=== PATIENT | female | born 1985 | race Caucasian/White ===

== ENCOUNTER → 2016-09-09 12:50 | Observation (INO) ==
[2016-09-09 11:00] LABS: Basophils % 0.2 %; Eosinophils # 0.1 K/mcL (0.0-0.6); Eosinophils % 0.7 %; Hematocrit 36.7 % (35.3-44.9); Hemoglobin 12.2 g/dL (11.5-15.4); Immature Granulocytes % 0.3 % (0-4); Lymphocytes # 1.8 K/mcL (0.6-4.6); Lymphocytes % 15.5 %; Mean Corpuscular HGB Conc 33.2 g/dL (31.6-35.5); Mean Corpuscular Hemoglobin 28.2 pg (28.0-33.3); Mean Corpuscular Volume 84.8 fL (83.0-100.0); Mean Platelet Volume 10.3 fL (9.4-12.4); Monocytes # 0.6 K/mcL (0.0-1.3); Monocytes % 5.2 %; Neutrophils # 9.2 K/mcL (1.6-8.9); Platelet Count 271 K/mcL (140-400); Red Blood Count 4.33 M/mcL (3.82-4.97); Red Cell Distribution Width 13.1 % (11.5-14.5); Segmented Neutrophils % 78.1 %
[2016-09-09 11:02] LABS: Bilirubin,Urine Negative (Negative); Blood,Urine Negative (Negative); Clarity,Urine Cloudy (Clear); Color,Urine Yellow (Yellow); Glucose,Urine (UA) Normal (Normal); Ketones,Urine Negative (Negative); Leukocyte Esterase,Urine Small (Negative); Nitrite,Urine Negative (Negative); PH,Urine 6.5 pH Units (5.0-8.0); Protein,Urine Negative (Neg-Trace); Specific Gravity,Urine 1.023 (1.010-1.025); Urobilinogen,Urine Normal (Normal)
[2016-09-09 11:04] LABS: Bacteria,Urine Moderate per hpf (None-Few); Hyaline Casts,Urine None Seen per lpf (None-Few); Squamous Epithelial Cell,Urine Many per lpf (None-Few)
[2016-09-09 11:13] LABS: Alanine Aminotransferase 11 Units/L (0-55); Aspartate Amino Transferase 12 Units/L (5-34); BUN/Creatinine Ratio 17 (6-26); Blood Urea Nitrogen 10 mg/dL (7-20); Lactate Dehydrogenase 157 Units/L (159-327); Uric Acid 4.6 mg/dL (2.6-6.0); eGFR For African Americans > 60 (> 60); eGFR For Non-African Americans > 60 (> 60)
--- NOTE | 2016-09-09 11:16 | OB/GYN History & Physical ---
Date of Encounter: 09/09/16 Time of Encounter: 11:12 Assessment and Plan (1) 34 weeks gestation of Current visit: Yes Status: Acute (2) Cramping affecting , antepartum Current visit: Yes Status: Acute - Normal physiologic cramping during . - Follow-up outpatient abnormal visit. History of Present Illness HPI: Ms. Roberts is a 31 year old female who is a 34 weeks and 1 day and is . She does have a history of gestational diabetes. She states this is possibly insulin-dependent diabetes. She was diagnosed during her previous and was continued on insulin however she got again less than a month after she had delivered. She is presenting with cramping in the right side of her abdomen since 3:30 this morning. She states they were happening every 3 minutes however they have slowed at this time. Her only other complaint at this time is she feels like her blood sugar is dropping. She did take her insulin and eat this morning. Her blood sugar was checked and found to be 77. Past Med Surg Social Fam HX - Past Medical History Medical history: diabetes Psychiatric history: no psych history - Past Surgical History Surgical History: - Social History Smoking Status: Never smoker Smokeless Tobacco Status: No Alcohol use: none Drug use: none, other - Family History Father Living Status: Still Living Hx Family Cardiac Disorders: Yes (heart attack x 2) Hx Family Respiratory Disorders: No Hx Family Cancer: No Hx Family GI Disorders: No Hx Family Genitourinary Disorders: No Hx Family Endocrine Disorder: No Hx Family Musculoskeletal Disorders: No Hx Family Neuromuscular Disorders: No Hx Family Neurologic Disorders: No Hx Family HEENT Disorders: No Hx Family Autoimmune Disorders: No Hx Family Reproductive Disorders: No Hx Family Psychosocial Disorders: No Hx Family Medical Disorders: Yes (hypertension) Obstetrical History - Pregnancies : 5 Para: 2 Medications and Allergies Insulin LISPRO [HumaLOG] 36 unit SQ 1200 09/09/16 [History] Insulin LISPRO [HumaLOG] 46 unit SQ QAM 09/09/16 [History] Insulin LISPRO [Humalog] 42 unit SQ 1700 09/09/16 [History] Insulin NPH [HumuLIN NPH] 46 unit SQ QAM 09/09/16 [History] Insulin NPH, HUMAN [HumuLIN N] 80 unit SQ 1200 09/09/16 [History] Pnv95/Ferrous Fumarate/FA [ Caplet] 1 each PO DAILY 09/09/16 [History] Allergies No Known Allergies Allergy (Unverified 03/30/15 11:52) Review of System OB All systems PM: reviewed and no additional remarkable complaints except as stated - Constitutional Constitutional ROS IM: no chills, no fever(s) - Nose, mouth, and throat Nose, mouth and throat: no headache(s), no vertigo - Cardiovascular Cardiovascular: pedal edema (Mild after standing all day.), no chest pain, no dyspnea - Respiratory Respiratory: no cough, no dyspnea - Gastrointestinal Gastrointestinal: constipation (Patient reports this however she states she had a bowel movement this morning.), heartburn (Occasional), nausea (Occasional), no dysphagia, no hematemesis, no loose stools, no vomiting - Genitourinary Genitourinary: amenorrhea, no difficulty urinating, no difficulty voiding, no hematuria, no pelvic pain, no urinary frequency, no urinary urgency, no vaginal discharge - Muscloskeletal Musculoskeletal: back pain - Integumentary Integumentary: no rash - Neurological Nerological: no dizziness, no headache(s), no loss of vision, no syncope, no vertigo Exam - Constitutional Constitutional: well developed, well nourished, no acute distress, obese - HEENT HEENT: Normocephaly, Mucus Membranes Moist - Neck Neck exam: full ROM, trachea midline - Lungs Respiratory exam: CTAB - Cardiovascular Cardiovascular exam: RRR - Abdomen Abdomen: Present: bowel sounds normal, gravid, non tender - Extremities Extremities exam: normal capillary refill, normal inspection, pedal edema (Very mild) Deep Tendon Reflex Grade: 2+ Normal - Uterus Uterus exam: Present: normal size, normal contour Results Result Diagrams: 09/09/16 10:44 09/09/16 10:44 Abnormal lab results WBC 11.8 K/mcL (4.3-11.1) H 09/09/16 10:44 Neutrophils # 9.2 K/mcL (1.6-8.9) H 09/09/16 10:44 All other labs normal. Patient's UA was a dirty catch. We will treat if cultures are positive. She has no urinary symptoms at this time. - VTE Reasons for not Prescribing Prophylaxis: Treatment not Indicated - Low risk for VTE
--- NOTE | 2016-09-09 12:31 | Discharge Summary ---
Date of Encounter: 09/09/16 Time of Encounter: 12:31 - Discharge Diagnosis (1) 34 weeks gestation of Priority: Primary Status: Acute (2) Cramping affecting , antepartum Priority: Secondary Status: Acute - Discharge Medications Home Medications: Insulin LISPRO [HumaLOG] 36 unit SQ 1200 09/09/16 [History] Insulin LISPRO [HumaLOG] 46 unit SQ QAM 09/09/16 [History] Insulin LISPRO [Humalog] 42 unit SQ 1700 09/09/16 [History] Insulin NPH [HumuLIN NPH] 46 unit SQ QAM 09/09/16 [History] Insulin NPH, HUMAN [HumuLIN N] 80 unit SQ 1200 09/09/16 [History] Pnv95/Ferrous Fumarate/FA [ Caplet] 1 each PO DAILY 09/09/16 [History] Allergies/Adverse Reactions: Allergies No Known Allergies Allergy (Unverified 03/30/15 11:52) Data Procedures and tests throughout hospitalization: Laboratory Tests 09/09/16 09/09/16 09/09/16 10:00 10:41 10:44 WBC 11.8 H RBC 4.33 Hgb 12.2 Hct 36.7 MCV 84.8 MCH 28.2 MCHC 33.2 RDW 13.1 Plt Count 271 MPV 10.3 Immature Gran % 0.3 Seg Neutrophils % 78.1 Lymphocytes % 15.5 Monocytes % 5.2 Eosinophils % 0.7 Basophils % 0.2 Neutrophils # 9.2 H Lymphocytes # 1.8 Monocytes # 0.6 Eosinophils # 0.1 Basophils # 0.0 BUN Creatinine Est GFR ( Amer) Est GFR (Non-Af Amer) BUN/Creatinine Ratio POC Glucose 77 Uric Acid AST ALT Lactate Dehydrogenase Urine Color Yellow Urine Clarity Cloudy A Urine pH 6.5 Ur Specific [place] 1.023 Urine Protein Negative Urine Glucose (UA) Normal Urine Ketones Negative Urine Blood Negative Urine Nitrite Negative Urine Bilirubin Negative Urine Urobilinogen Normal Ur Leukocyte Esterase Small H Urine Microscopic RBC 3-5 H Urine Microscopic WBC 5-15 H Ur Squamous Epith Cells Many H Urine Bacteria Moderate H Hyaline Casts None Seen Ur Culture Indicated? YES A 09/09/16 10:44 WBC RBC Hgb Hct MCV MCH MCHC RDW Plt Count MPV Immature Gran % Seg Neutrophils % Lymphocytes % Monocytes % Eosinophils % Basophils % Neutrophils # Lymphocytes # Monocytes # Eosinophils # Basophils # BUN 10 Creatinine 0.59 Est GFR ( Amer) > 60 Est GFR (Non-Af Amer) > 60 BUN/Creatinine Ratio 17 POC Glucose Uric Acid 4.6 AST 12 ALT 11 Lactate Dehydrogenase 157 L Urine Color Urine Clarity Urine pH Ur Specific [place] Urine Protein Urine Glucose (UA) Urine Ketones Urine Blood Urine Nitrite Urine Bilirubin Urine Urobilinogen Ur Leukocyte Esterase Urine Microscopic RBC Urine Microscopic WBC Ur Squamous Epith Cells Urine Bacteria Hyaline Casts Ur Culture Indicated? Patient urine a dirty catch. We will prescribe antibiotics if cultures positive. She has no urinary symptoms at this time. Urine protein was negative. Labs on day of discharge: Labs from last 24 hours 09/09/16 09/09/16 09/09/16 10:44 10:44 10:41 WBC 11.8 H RBC 4.33 Hgb 12.2 Hct 36.7 MCV 84.8 MCH 28.2 MCHC 33.2 RDW 13.1 Plt Count 271 MPV 10.3 Immature Gran % 0.3 Seg Neutrophils % 78.1 Lymphocytes % 15.5 Monocytes % 5.2 Eosinophils % 0.7 Basophils % 0.2 Neutrophils # 9.2 H Lymphocytes # 1.8 Monocytes # 0.6 Eosinophils # 0.1 Basophils # 0.0 BUN 10 Creatinine 0.59 Est GFR ( Amer) > 60 Est GFR (Non-Af Amer) > 60 BUN/Creatinine Ratio 17 POC Glucose 77 Uric Acid 4.6 AST 12 ALT 11 Lactate Dehydrogenase 157 L Urine Color Urine Clarity Urine pH Ur Specific [place] Urine Protein Urine Glucose (UA) Urine Ketones Urine Blood Urine Nitrite Urine Bilirubin Urine Urobilinogen Ur Leukocyte Esterase Urine Microscopic RBC Urine Microscopic WBC Ur Squamous Epith Cells Urine Bacteria Hyaline Casts Ur Culture Indicated? 09/09/16 10:00 WBC RBC Hgb Hct MCV MCH MCHC RDW Plt Count MPV Immature Gran % Seg Neutrophils % Lymphocytes % Monocytes % Eosinophils % Basophils % Neutrophils # Lymphocytes # Monocytes # Eosinophils # Basophils # BUN Creatinine Est GFR ( Amer) Est GFR (Non-Af Amer) BUN/Creatinine Ratio POC Glucose Uric Acid AST ALT Lactate Dehydrogenase Urine Color Yellow Urine Clarity Cloudy A Urine pH 6.5 Ur Specific [place] 1.023 Urine Protein Negative Urine Glucose (UA) Normal Urine Ketones Negative Urine Blood Negative Urine Nitrite Negative Urine Bilirubin Negative Urine Urobilinogen Normal Ur Leukocyte Esterase Small H Urine Microscopic RBC 3-5 H Urine Microscopic WBC 5-15 H Ur Squamous Epith Cells Many H Urine Bacteria Moderate H Hyaline Casts None Seen Ur Culture Indicated? YES A Date of admission: 09/09/16 09:47 Primary care physician: PCP NO - Patient Status Disposition: Home, Self-Care Condition: Good Overall status at discharge: patient is back to baseline - Discharge Instructions Follow Up With: NO,PCP [Primary Care Provider] - Patience Salas, [Partnered Physician] - Additional Instructions: 1. Continue to drink plenty of fluids. 2. Continue your insulin regimen as discussed with maternal- medicine. 3. You may use [id number] Tylenol for general aches and pains. 4. If you have any questions or concerns or your symptoms return or worsen please contact the office. If you feels like you need to immediately be seen please come to the hospital. - Diet and Activity Activity: increase activity as tolerated Diet: advance to your usual diet, diabetic diet Hospital Course [employer] Time Attestation: Total time spent providing and/or coordinating discharge services: Time Spent: Less than 30 minutes - VTE Reasons for not Prescribing Prophylaxis: Treatment not Indicated - Low risk for VTE
[2016-09-09 12:34] LABS: Protein/Creatinine Ratio,Urine 0.17 mg/mg (0-0.20)
== END | disposition home or self-care (01) ==
LOC: 1NENULAB
PROVIDERS: ADMIT Obstetrics & Gynecology; ATTEND Obstetrics & Gynecology

== ENCOUNTER → 2016-09-11 20:49 | Observation (INO) ==
[2016-09-11 17:41] VITALS: BP 143/100
[2016-09-11 18:04] LABS: Basophils % 0.3 %; Eosinophils # 0.1 K/mcL (0.0-0.6); Eosinophils % 0.9 %; Hematocrit 38.5 % (35.3-44.9); Hemoglobin 12.7 g/dL (11.5-15.4); Immature Granulocytes % 0.3 % (0-4); Lymphocytes # 2.2 K/mcL (0.6-4.6); Mean Corpuscular Volume 84.8 fL (83.0-100.0); Mean Platelet Volume 10.7 fL (9.4-12.4); Monocytes # 0.7 K/mcL (0.0-1.3); Monocytes % 6.4 %; Neutrophils # 7.4 K/mcL (1.6-8.9); Platelet Count 290 K/mcL (140-400); Red Blood Count 4.54 M/mcL (3.82-4.97); Segmented Neutrophils % 71.1 %
[2016-09-11 18:13] LABS: Creatinine,Urine 27 mg/dL; Protein/Creatinine Ratio,Urine 0.26 mg/mg (0-0.20)
[2016-09-11 18:22] LABS: Alanine Aminotransferase 11 Units/L (0-55); Aspartate Amino Transferase 10 Units/L (5-34); BUN/Creatinine Ratio 16 (6-26); Blood Urea Nitrogen 10 mg/dL (7-20); Lactate Dehydrogenase 128 Units/L (159-327); Uric Acid 3.7 mg/dL (2.6-6.0); eGFR For African Americans > 60 (> 60); eGFR For Non-African Americans > 60 (> 60)
[2016-09-11 18:41] LABS: Glucose 197 mg/dL (70-99)
--- NOTE | 2016-09-11 20:30 | OB/GYN Progress Note ---
Date of Encounter: 09/11/16 Time of Encounter: 20:27 - Assessment and Plan (1) Gestational hypertension without significant proteinuria in third trimester Current Visit: Yes Status: Acute begin labetolol 100 mg po tid. Home BP checks with proper sized cuff. Followup Monday with me. (2) Modified White class B pregestational diabetes mellitus Current Visit: Yes Status: Acute Stressed to patient importance of doing her glucose measurements, taking her insulin, and eating regularly. She voices understanding and states she will do better at it. I explained just like the hyperglycemia makes mom tired, it will also make the baby tired and move less. (3) 34 weeks gestation of Current Visit: No Status: Acute (4) Decreased movement Current Visit: Yes Status: Acute Reactive NST with baseline now 150, category 1. Initially tachycardia in 160's with moderate variablity and accels which resolved with insulin and IV hydration. Subjective - Subjective Principal diagnosis: increased blood pressure with decreased movement Interval history: Patient called and then presented with increased blood pressure at home and decreased movement. She also states she has had a headache. It is a normal type headache for her. She has not eaten or taken any insulin all day. She has also not checked her blood sugar today. Since arrival she is feeling better and has felt the baby move more frequently. Antepartum ROS: no loss of fluid, no vaginal bleeding, no contractions Objective - Vital Signs Vital Signs: Vital Signs Pulse Resp BP 09/11/16 17:28 100 16 143/100 Intake and Output 09/11/16 09/11/16 09/11/16 07:59 15:59 23:59 Other: Weight 114 kg Patient Weight 09/11/16 23:59 Weight 114 kg - Exam FHR: category 1 Auscultation: bilateral: normal Abdomen: Present: normal appearance, soft, gravid - Labs Labs: Abnormal lab results Glucose 197 mg/dL (70-99) H 09/11/16 17:56 Lactate Dehydrogenase 128 Units/L (159-327) L 09/11/16 17:56 Protein/Creatinin Ratio 0.26 mg/mg (0-0.20) H 09/11/16 17:56 - Allied health notes Allied health notes reviewed: nursing
--- NOTE | 2016-09-11 20:35 | Discharge Summary ---
Outpatient Proc Discharge Plan - Plan Prescriptions: Labetalol [Trandate] 100 mg PO TID #90 tablet Home Medications: Insulin LISPRO [HumaLOG] 36 unit SQ 1200 09/09/16 [History] Insulin LISPRO [HumaLOG] 46 unit SQ QAM 09/09/16 [History] Insulin LISPRO [Humalog] 42 unit SQ 1700 09/09/16 [History] Insulin NPH [HumuLIN NPH] 46 unit SQ QAM 09/09/16 [History] Insulin NPH, HUMAN [HumuLIN N] 80 unit SQ 1200 09/09/16 [History] Pnv95/Ferrous Fumarate/FA [ Caplet] 1 each PO DAILY 09/09/16 [History] Labetalol [Trandate] 100 mg PO TID #90 tablet 09/11/16 [Rx]
[~2016-09-11 20:49] MED LIST: 0.9 % Sodium Chloride 1,000 ML IVC ONE; Insulin LISPRO 300 UNITS/3 ML VIAL SQ STA
== END | disposition home or self-care (01) ==
LOC: 1NENULAB
PROVIDERS: ADMIT Obstetrics & Gynecology; ATTEND Obstetrics & Gynecology

== ENCOUNTER → 2016-09-13 18:35 | Observation (INO) ==
[2016-09-13 17:52] LABS: Bilirubin,Urine Negative (Negative); Blood,Urine Negative (Negative); Clarity,Urine Cloudy (Clear); Color,Urine Yellow (Yellow); Glucose,Urine (UA) Normal (Normal); Ketones,Urine 40 mg/dL (Negative); Leukocyte Esterase,Urine Small (Negative); Nitrite,Urine Negative (Negative); PH,Urine 6.5 pH Units (5.0-8.0); Protein,Urine Negative (Neg-Trace); Specific Gravity,Urine 1.016 (1.010-1.025); Urobilinogen,Urine Normal (Normal)
[2016-09-13 17:54] LABS: Basophils % 0.2 %; Eosinophils # 0.1 K/mcL (0.0-0.6); Eosinophils % 1.1 %; Hematocrit 36.1 % (35.3-44.9); Hemoglobin 11.8 g/dL (11.5-15.4); Immature Granulocytes % 0.4 % (0-4); Lymphocytes # 2.3 K/mcL (0.6-4.6); Lymphocytes % 20.8 %; Mean Corpuscular HGB Conc 32.7 g/dL (31.6-35.5); Mean Corpuscular Hemoglobin 27.6 pg (28.0-33.3); Mean Corpuscular Volume 84.3 fL (83.0-100.0); Mean Platelet Volume 10.5 fL (9.4-12.4); Monocytes # 0.6 K/mcL (0.0-1.3); Monocytes % 5.1 %; Neutrophils # 8.1 K/mcL (1.6-8.9); Platelet Count 290 K/mcL (140-400); Red Blood Count 4.28 M/mcL (3.82-4.97); Red Cell Distribution Width 12.9 % (11.5-14.5); Segmented Neutrophils % 72.4 %
[2016-09-13 17:55] LABS: Bacteria,Urine Many per hpf (None-Few); Hyaline Casts,Urine None Seen per lpf (None-Few); RBC,Urine 0-3 per hpf (0-3); Squamous Epithelial Cell,Urine Many per lpf (None-Few)
[2016-09-13 18:00] LABS: Protein/Creatinine Ratio,Urine 0.22 mg/mg (0-0.20)
[2016-09-13 18:06] LABS: Alanine Aminotransferase 10 Units/L (0-55); Aspartate Amino Transferase 12 Units/L (5-34); BUN/Creatinine Ratio 21 (6-26); Blood Urea Nitrogen 11 mg/dL (7-20); Lactate Dehydrogenase 128 Units/L (159-327); Uric Acid 3.9 mg/dL (2.6-6.0); eGFR For African Americans > 60 (> 60); eGFR For Non-African Americans > 60 (> 60)
--- NOTE | 2016-09-13 18:24 | Discharge Summary ---
Date of Encounter: 09/13/16 Time of Encounter: 18:23 - Discharge Diagnosis (1) 34 weeks gestation of Priority: Primary Status: Acute Comments: Headache. Treating with [id number] Tylenol. - Discharge Medications Home Medications: Insulin LISPRO [HumaLOG] 36 unit SQ 1200 09/09/16 [History] Insulin LISPRO [HumaLOG] 46 unit SQ QAM 09/09/16 [History] Insulin LISPRO [Humalog] 42 unit SQ 1700 09/09/16 [History] Insulin NPH [HumuLIN NPH] 46 unit SQ QAM 09/09/16 [History] Insulin NPH, HUMAN [HumuLIN N] 80 unit SQ HS 09/09/16 [History] Pnv95/Ferrous Fumarate/FA [ Caplet] 1 each PO DAILY 09/09/16 [History] Labetalol [Trandate] 100 mg PO TID #90 tablet 09/11/16 [Rx] Allergies/Adverse Reactions: Allergies No Known Allergies Allergy (Unverified 03/30/15 11:52) Data Procedures and tests throughout hospitalization: Laboratory Tests 09/13/16 09/13/16 09/13/16 17:15 17:15 17:15 WBC 11.2 H RBC 4.28 Hgb 11.8 Hct 36.1 MCV 84.3 MCH 27.6 L MCHC 32.7 RDW 12.9 Plt Count 290 MPV 10.5 Immature Gran % 0.4 Seg Neutrophils % 72.4 Lymphocytes % 20.8 Monocytes % 5.1 Eosinophils % 1.1 Basophils % 0.2 Neutrophils # 8.1 Lymphocytes # 2.3 Monocytes # 0.6 Eosinophils # 0.1 Basophils # 0.0 BUN Creatinine Est GFR ( Amer) Est GFR (Non-Af Amer) BUN/Creatinine Ratio Uric Acid AST ALT Lactate Dehydrogenase Urine Color Yellow Urine Clarity Cloudy A Urine pH 6.5 Ur Specific [place] 1.016 Urine Protein Negative Urine Glucose (UA) Normal Urine Ketones 40 H Urine Blood Negative Urine Nitrite Negative Urine Bilirubin Negative Urine Urobilinogen Normal Ur Leukocyte Esterase Small H Urine Microscopic RBC 0-3 Urine Microscopic WBC 5-15 H Ur Squamous Epith Cells Many H Urine Bacteria Many H Hyaline Casts None Seen Ur Culture Indicated? YES A Urine Creatinine 51 Protein/Creatinin Ratio 0.22 H Urine Total Protein 11 09/13/16 17:15 WBC RBC Hgb Hct MCV MCH MCHC RDW Plt Count MPV Immature Gran % Seg Neutrophils % Lymphocytes % Monocytes % Eosinophils % Basophils % Neutrophils # Lymphocytes # Monocytes # Eosinophils # Basophils # BUN 11 Creatinine 0.52 L Est GFR ( Amer) > 60 Est GFR (Non-Af Amer) > 60 BUN/Creatinine Ratio 21 Uric Acid 3.9 AST 12 ALT 10 Lactate Dehydrogenase 128 L Urine Color Urine Clarity Urine pH Ur Specific [place] Urine Protein Urine Glucose (UA) Urine Ketones Urine Blood Urine Nitrite Urine Bilirubin Urine Urobilinogen Ur Leukocyte Esterase Urine Microscopic RBC Urine Microscopic WBC Ur Squamous Epith Cells Urine Bacteria Hyaline Casts Ur Culture Indicated? Urine Creatinine Protein/Creatinin Ratio Urine Total Protein Labs on day of discharge: Labs from last 24 hours 09/13/16 09/13/16 09/13/16 17:15 17:15 17:15 WBC 11.2 H RBC 4.28 Hgb 11.8 Hct 36.1 MCV 84.3 MCH 27.6 L MCHC 32.7 RDW 12.9 Plt Count 290 MPV 10.5 Immature Gran % 0.4 Seg Neutrophils % 72.4 Lymphocytes % 20.8 Monocytes % 5.1 Eosinophils % 1.1 Basophils % 0.2 Neutrophils # 8.1 Lymphocytes # 2.3 Monocytes # 0.6 Eosinophils # 0.1 Basophils # 0.0 BUN 11 Creatinine 0.52 L Est GFR ( Amer) > 60 Est GFR (Non-Af Amer) > 60 BUN/Creatinine Ratio 21 Uric Acid 3.9 AST 12 ALT 10 Lactate Dehydrogenase 128 L Urine Color Yellow Urine Clarity Cloudy A Urine pH 6.5 Ur Specific [place] 1.016 Urine Protein Negative Urine Glucose (UA) Normal Urine Ketones 40 H Urine Blood Negative Urine Nitrite Negative Urine Bilirubin Negative Urine Urobilinogen Normal Ur Leukocyte Esterase Small H Urine Microscopic RBC 0-3 Urine Microscopic WBC 5-15 H Ur Squamous Epith Cells Many H Urine Bacteria Many H Hyaline Casts None Seen Ur Culture Indicated? YES A Urine Creatinine Protein/Creatinin Ratio Urine Total Protein 09/13/16 17:15 WBC RBC Hgb Hct MCV MCH MCHC RDW Plt Count MPV Immature Gran % Seg Neutrophils % Lymphocytes % Monocytes % Eosinophils % Basophils % Neutrophils # Lymphocytes # Monocytes # Eosinophils # Basophils # BUN Creatinine Est GFR ( Amer) Est GFR (Non-Af Amer) BUN/Creatinine Ratio Uric Acid AST ALT Lactate Dehydrogenase Urine Color Urine Clarity Urine pH Ur Specific [place] Urine Protein Urine Glucose (UA) Urine Ketones Urine Blood Urine Nitrite Urine Bilirubin Urine Urobilinogen Ur Leukocyte Esterase Urine Microscopic RBC Urine Microscopic WBC Ur Squamous Epith Cells Urine Bacteria Hyaline Casts Ur Culture Indicated? Urine Creatinine 51 Protein/Creatinin Ratio 0.22 H Urine Total Protein 11 patient protein/ creatinine ratio 0.22. patient urinalysis is a dirty catch. Patient's urine protein was negative Liver enzymes were normal. - Impressions ROS: All other systems negative except for stated. Patient denies any syncope. She does report a headache that has been an aching behind her eyes bilaterally since Monday. She states she does have photophobia with this. She does have a history of migraines. She states this is not as bad as her general migraines. She does report nausea with this as well. She denies any vomiting or diarrhea. She denies any abdominal pain. She denies any loss of vision. She denies any recent fevers or illnesses. She reports pedal edema after standing on her feet all day. She denies any shortness of breath or chest pain. Patient is a at 34 weeks and with a complicated with diabetes. patient sent for a [facility] evaluation. She was SEEN HERE ON Monday and placed on labetalol. She states that she has had a headache since Monday. While being evaluated here she states that her headache has eased off. She refuses pain medication while she is here. Patient's blood pressure is within normal limits while she is here. She states she did not take her labetalol afternoon dose. She denies any blurry vision or loss of vision. She states that she does have some photophobia with this headache. She does not have edema to any of her extremities at this time. Her lab work is grossly normal. Her urinalysis was a dirty catch. She has no urinary symptoms at this time. We will discharge patient with follow-up for her normal office visit which is biweekly with Dr. Salas. Date of admission: 09/13/16 17:19 - Patient Status Disposition: Home, Self-Care Condition: Good Overall status at discharge: patient is back to baseline - Discharge Instructions Follow Up With: Patience Salas DO [Partnered Physician] - Additional Instructions: LABOR AND DELIVERY DISCHARGE INSTRUCTIONS Signs and Symptoms to be Reported to your Doctor Immediately: * Sudden gush, continuous or intermittent lead of fluid from vagina (note the time of gush and color of fluid) * Onset of bright red vaginal bleeding with or without pain (if you had a vaginal exam during this visit you may notice some dark red spotting. This is normal.) * Lower abdominal cramping or backache that is premenstrual-like feeling. * More than 6 contractions in one hour. * Burning during urination, having to urinate more frequently or pain in your mid-back. * A change in the baby's activity. This could be an increase or decrease in activity. * Severe headache which does not go away with tylenol. * Sudden swelling in the face, hands, arms and/or legs. * Upper abdominal pain - sometimes associated with heartburn or nausea and is not relieved by Maalox, Mylanta or Tums. * Dizziness or blurred vision or visual disturbances (seeing stars/lights). * Kick Counts One hour after a meal, lay down on one side in a quiet place. Count the number of kavon the baby moves during an hour. If less than 6 movements, notify your physician. Diet: *Force fluids - 8-10 tall glasses of fluid per day. May include popsicles and jello. *Limit caffeine - this includes chocolate, coffee, tea, any soft drink containing such as all leila, Inderjit Yellow and Mountain Dew - Diet and Activity Activity: resume usual activities as tolerated Diet: advance to your usual diet Hospital Course [employer] Time Attestation: Total time spent providing and/or coordinating discharge services: Time Spent: Less than 30 minutes Exam - Constitutional General appearance IM: A&O X 3, no acute distress - Respiratory Respiratory exam: Present: CTAB - Cardiovascular Cardiovascular exam IM: Present: RRR - GI/Abdominal GI/Abdominal exam IM: normal bowel sounds - Extremities Exam Extremities exam IM: Present: full ROM, normal capillary refill, normal inspection, radial pulses palpable and symetrical Additional comments: no edema. - Neurological Exam Neurological exam: alert, normal gait, oriented X3 Additional comments: Patellar reflexes +1. - VTE Reasons for not Prescribing Prophylaxis: Treatment not Indicated - Low risk for VTE
== END | disposition home or self-care (01) ==
LOC: 1NENULAB
PROVIDERS: ADMIT Obstetrics & Gynecology; ATTEND Obstetrics & Gynecology

== ENCOUNTER 2016-09-29 08:00 | Inpatient (IN) ==
[2016-09-29] MEDS ORDERED: Ringers Solution, Lactated 1,000 ML IVC ONE (08:27)
[2016-09-29] MEDS ORDERED: Famotidine 20 MG/2 ML VIAL IVP ONE (08:27)
[2016-09-29] MEDS ORDERED: CeFAZolin Pre 2,000 MG/100 ML 2,000 MG/100 ML BAG IVPB ONE (08:27)
[2016-09-29] MEDS ORDERED: Metoclopramide 10 MG/2 ML VIAL IVP ONE (08:27)
[2016-09-29] MEDS ORDERED: Ringers Solution, Lactated 1,000 ML IVC SCH (08:30)
--- NOTE | 2016-09-29 08:38 | Anesthesia Evaluation PreOp ---
Date of Encounter: 09/29/16 Time of Encounter: 08:35 - Past History Planned Operation: Repeat Cardiac History: HTN (on labetolol 100mg TID) Pulmonary History: Denies Any Significant HX FITTER TYPE BAR AND SEGMENT History: Other (chronic upper and lower back pain, radiating to bilateral Hips, chronic magraines) Other Medical History: Diabetes Type II Anesthesia History: No Prior Anesthetic Complications (previous spinal with DIFF according to patient.), Past Anesthesia Alcohol Use: none Drug use: none, other Medications and Allergies Insulin LISPRO [HumaLOG] 36 unit SQ 1200 09/09/16 [History] Insulin LISPRO [HumaLOG] 46 unit SQ QAM 09/09/16 [History] Insulin LISPRO [Humalog] 42 unit SQ 1700 09/09/16 [History] Insulin NPH [HumuLIN NPH] 46 unit SQ QAM 09/09/16 [History] Insulin NPH, HUMAN [HumuLIN N] 84 unit SQ HS 09/09/16 [History] Pnv95/Ferrous Fumarate/FA [ Caplet] 1 each PO DAILY 09/09/16 [History] Labetalol [Trandate] 100 mg PO TID #90 tablet 09/11/16 [Rx] Allergies No Known Allergies Allergy (Unverified 03/30/15 11:52) Anesthesia Exam - HEENT Pupil (Motor): Pupils equal Mallampati: I Teeth: Normal Oral Opening: Greater than 3 - FITTER TYPE BAR AND SEGMENT LOC: Oriented FITTER TYPE BAR AND SEGMENT Motor: Normal RUE, Normal LUE, Normal RLE, Normal LLE, Normal Face FITTER TYPE BAR AND SEGMENT Sensory: Normal: RUE, LUE, RLE, LLE, Face - Cardiac Rhythm: Regular Murmur: None - Pulmonary Breath Sounds: bilateral Clear Respiratory Effort: Symmetrical Anesthesia Assess/Plan ASA Score: 3 (HTN, MO 48, DM,) Modified Dylon Scale for Level of Consciousness: Cooperative, oriented, and tranquil Anesthetic Plan: General, Regional Monitoring Plan: Standard Monitors
[2016-09-29] MEDS ORDERED: *HR* HYDROmorphone (PF) 1 MG/ML SYRINGE IVP PRN ×2 (08:42→14:05)
[2016-09-29] MEDS ORDERED: *HR* Labetalol 100 MG/20 ML MDV IVP PRN (08:42)
[2016-09-29] MEDS ORDERED: *HR* Promethazine 25 MG/ML VIAL IVP PRN (08:42)
[2016-09-29 08:49] LABS: Basophils % 0.3 %; Eosinophils # 0.1 K/mcL (0.0-0.6); Eosinophils % 1.4 %; Hematocrit 39.3 % (35.3-44.9); Hemoglobin 12.7 g/dL (11.5-15.4); Immature Granulocytes % 0.4 % (0-4); Lymphocytes # 1.8 K/mcL (0.6-4.6); Lymphocytes % 18.4 %; Mean Corpuscular HGB Conc 32.3 g/dL (31.6-35.5); Mean Corpuscular Volume 83.6 fL (83.0-100.0); Mean Platelet Volume 11.2 fL (9.4-12.4); Monocytes # 0.5 K/mcL (0.0-1.3); Monocytes % 4.9 %; Neutrophils # 7.3 K/mcL (1.6-8.9); Platelet Count 260 K/mcL (140-400); Red Cell Distribution Width 13.2 % (11.5-14.5); Segmented Neutrophils % 74.6 %
[2016-09-29] MEDS ORDERED: EPHEDrine 50 MG/ML VIAL ONE (08:50)
[2016-09-29] MEDS ORDERED: *HR* FentaNYL (PF) 100 MCG/2 ML VIAL ONE (08:50)
[2016-09-29] MEDS ORDERED: *HR* Phenylephrine 10 MG/ML VIAL ONE (08:50)
[2016-09-29] MEDS ORDERED: *HR* Morphine Sulfate/PF 5 MG/10 ML AMPUL ONE (08:50)
[2016-09-29] MEDS ORDERED: *HR* Oxytocin 10 UNIT/ML VIAL IM ONE (08:54)
[2016-09-29] MEDS ORDERED: Ringers Solution, Lactated 2,000 ML ONE (08:55)
--- NOTE | 2016-09-29 09:10 | OB/GYN History & Physical ---
Date of Encounter: 09/29/16 Time of Encounter: 09:09 Assessment and Plan (1) 37 weeks gestation of Current visit: Yes Status: Acute - (2) Gestational hypertension without significant proteinuria in third trimester Current visit: No Status: Acute (3) Previous section Current visit: Yes Status: Acute -Recommended at 37w due to DM, uncontrolled -Patient has no concerns or complaints, previous c/s uncomplicated Plan -Continue with C/s -post c/s admit for observation, pain management, wound vac management. 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 Roberts is a 31 year old female,GBS negative, , at 37w c/c scheduled csection. C/s scheduled because patient has uncontrolled DM due to non compliance. Today, she states that she is not having any issues. No N/V/D/ abdominal pain. She has been taking labetalol and insulin throughout her . She has induced HTN, but DM prior. Denies smoking, drinking or drug use. Has had 2 tubal pregnancies, otherwise her other c- sections have been uncomplicated. No history or family history of bleeding disorders. She also desires permanent sterilization. Past Med Surg Social Fam HX - Past Medical History Source: patient Medical history: diabetes Psychiatric history: no psych history - Past Surgical History Surgical History: - Social History Smoking Status: Never smoker Smokeless Tobacco Status: No Alcohol use: none Drug use: none, other - Family History Father Living Status: Still Living Hx Family Cardiac Disorders: Yes (hx of heart attack x2) Hx Family Respiratory Disorders: No Hx Family Cancer: No Hx Family GI Disorders: No Hx Family Endocrine Disorder: No Hx Family Neuromuscular Disorders: No Hx Family Neurologic Disorders: No Hx Family HEENT Disorders: No Hx Family Autoimmune Disorders: No Obstetrical History - Pregnancies : 5 Para: 2 Ab's: 2 Livin Medications and Allergies Insulin LISPRO [HumaLOG] 36 unit SQ 1200 09/09/16 [History] Insulin LISPRO [HumaLOG] 46 unit SQ QAM 09/09/16 [History] Insulin LISPRO [Humalog] 42 unit SQ 1700 09/09/16 [History] Insulin NPH [HumuLIN NPH] 46 unit SQ QAM 09/09/16 [History] Insulin NPH, HUMAN [HumuLIN N] 84 unit SQ HS 09/09/16 [History] Pnv95/Ferrous Fumarate/FA [ Caplet] 1 each PO DAILY 09/09/16 [History] Labetalol [Trandate] 100 mg PO TID #90 tablet 09/11/16 [Rx] Allergies No Known Allergies Allergy (Unverified 03/30/15 11:52) Review of System OB - Cardiovascular Cardiovascular: no chest pain with activity - Respiratory Respiratory: no wheezing - Gastrointestinal Gastrointestinal: no abdominal pain Exam - Constitutional Constitutional: well developed, well nourished, no acute distress, average body habitus - HEENT HEENT: Normocephaly, Mucus Membranes Moist - Lungs Respiratory exam: CTAB - Cardiovascular Cardiovascular exam: RRR - Abdomen Abdomen: Present: bowel sounds normal, non tender - Extremities Deep Tendon Reflex Grade: 2+ Normal Results Result Diagrams: 09/29/16 08:34 Abnormal lab results MCH 27.0 pg (28.0-33.3) L 09/29/16 08:34 All other labs normal. - Attending Attestation I examined this patient and my medical decision-making was reviewed with the Resident Physician. I agree with the documented findings, disposition and treatment plan as described. Patience Salas D.O.
--- NOTE | 2016-09-29 11:47 | OB/GYN Procedure Note ---
Section - Date of procedure: 09/29/16 Preop diagnosis: desires repeat , desires sterilization, other ( noncompliant diabetic with 37 week fetus, recommended by [facility] to deliver at 37) Post-op diagnosis: same Procedure: section, repeat low transverse, bilateral tubal ligation Surgeon: Patience Salas Estimated blood loss (cc): 600 Anesthesiologist: Tree Smiley Windshield Wiper Repairer: Mayo Clay Anesthesia Type: Spinal section complications: none Disposition: L&D Recovery Room Specimens: Left tube segment - Infant (s) Infant A Delivery Date: 09/29/16 Infant Delivery Time: 10:23 Presentation: vertex Position: unknown Gender: Female Viability: Viable Pounds: 9 Ounces: 6 Gram Weight: 4.24 kg at 1 minute: 8 at 5 minutes: 9 Specimens collected: cord blood Placenta: spontaneous Cord: 3 umbilical vessels - Narrative Narrative: Patient was taken to the operative suite and placed under spinal anesthetic. She was then prepped and draped in normal sterile fashion in the dorsal supine position. Timeout was then performed. 2 gm Ancef was given at room time. SCDs are on and active. Pfannenstiel skin incision is then made above her pannus and carried through to underlying layer of fascia with the Bovie. The fascia was then incised in the midline and incision extended laterally with the Bazzi scissors. The fascia was tented up and dissected off the rectus muscles sharply. The rectus muscles were in the midline and the peritoneum was tented up and entered sharply with the Metzenbaum scissors. The peritoneal incision was then extended bluntly. Derrick retractor was then placed. A low transverse uterine incision was then made well above the bladder reflection and scaring. The infant vertex was brought to the incision and the infant was delivered using fundal pressure. There was no nuchal cord. Cord was clamped and cut. Infant was handed to waiting nursery staff. Placenta delivered spontaneously complete and intact with a three-vessel cord. The uterus was cleared of all clots and debris using moist laparotomy sponge. The uterine incision was then closed using 0 Vicryl in a running locked fashion. A second layer of the same suture was used to obtain excellent hemostasis. Multiple [id number] sutures were then used to obtain hemostasis. Attention was then turned to the patient's tube. Evidence of prior right salpingectomy noted and confirmed by the patient. The left tube was then grasped and followed to the fimbriated end. There were adhesions noted at the fimbriated end to the ovary. A Juntura salpingectomy was then performed by suturing the distal and as well as the proximal and and excising approximately 4 cm of the amupullary portion of the tube. Hemostasis is assured using a Maria Fernanda stitch of 4-0 Vicryl on the proximal end. The abdomen was then cleared of all clots and debris using copious irrigation. The fascial incision was then closed using 0 PDS in a running fashion. The subcuticular areas reapproximated using 0 plain gut. The skin was closed using 4 -0 Vicryl in a subcuticular fashion. Ivan dressing is then placed. Mother and infant taken to recovery in stable condition.
[2016-09-29] MEDS ORDERED: Oxytocin 20 units/ LR 1000 mL 20 UNIT/1,000 ML BAG IVC ONE (12:06)
--- NOTE | 2016-09-29 12:31 | Anesthesia Evaluation Post Op ---
Date of Encounter: 09/29/16 Time of Encounter: 12:31 - Vital Signs Vital Signs: vss - Lungs Lungs: Clear Ascult./Percussion - Airway Airway: Non-obstructed - Cardiovascular Baseline Rhythm - Mental Status Mental Status: Alert & Oriented, Answers Appropriately - Pain Pain Scale used: Dalton (Faces) - Nausea Vomiting Nausea Vomiting: Not Present - Hydration Hydration: Noland catheter - Discharge PostOp Status: Transfer Patient to floor
[2016-09-29] MEDS: Oxytocin 20 units/ LR 1000 mL 20 UNIT/1,000 ML BAG IV SCH ×2 (13:55→21:30)
[2016-09-29] MEDS ORDERED: *HR* Morphine 2 MG/ML SYRINGE IVP PRN (14:05)
[2016-09-29] MEDS ORDERED: Metoclopramide 10 MG/2 ML VIAL IVP PRN (14:05)
[2016-09-29] MEDS ORDERED: *HR* Dextrose 50 % in Water (Syg) 50 ML SYRINGE IVP PRN (14:05)
[2016-09-29] MEDS ORDERED: Dextrose Gel 15 GM PO PRN ×2 (14:05)
[2016-09-29] MEDS ORDERED: Ondansetron 4 MG/2 ML VIAL IVP PRN (14:05)
[2016-09-29] MEDS ORDERED: Simethicone 80 MG TAB.CHEW PO PRN (14:05)
[2016-09-29] MEDS ORDERED: Acetaminophen 325 MG TABLET PO PRN (14:05)
[2016-09-29] MEDS ORDERED: D5% in Water 1,000 ML IV PRN (14:05)
[2016-09-29] MEDS ORDERED: Sennosides 8.6 MG TABLET PO PRN (14:05)
[2016-09-29] MEDS: Insulin LISPRO 300 UNITS/3 ML VIAL SQ SCH ×3 (14:20→21:28)
[2016-09-29] MEDS ORDERED: metroNIDAZOLE 500 MG TABLET PO SCH (15:00)
[2016-09-29] MEDS ORDERED: cephALEXin 500 MG CAPSULE PO SCH (15:00)
[2016-09-29] MEDS: metroNIDAZOLE 500 MG TABLET PO SCH (18:04)
[2016-09-29] MEDS: cephALEXin 500 MG CAPSULE PO SCH (18:05)
[2016-09-29] MEDS: *HR* OxyCODONE/APAP 5/325 TABLET PO PRN (21:56)
[2016-09-30] MEDS: cephALEXin 500 MG CAPSULE PO SCH ×4 (00:51→20:09)
[2016-09-30] MEDS: metroNIDAZOLE 500 MG TABLET PO SCH ×4 (00:51→20:09)
[2016-09-30] MEDS: Ibuprofen 600 MG TABLET PO PRN ×3 (00:51→19:07)
[2016-09-30] MEDS: *HR* OxyCODONE/APAP 5/325 TABLET PO PRN ×4 (03:37→20:18)
[2016-09-30 07:41] LABS: Basophils % 0.2 %; Eosinophils # 0.2 K/mcL (0.0-0.6); Eosinophils % 1.5 %; Hematocrit 34.5 % (35.3-44.9); Hemoglobin 11.2 g/dL (11.5-15.4); Immature Granulocytes % 0.3 % (0-4); Lymphocytes # 1.2 K/mcL (0.6-4.6); Lymphocytes % 10.1 %; Mean Corpuscular HGB Conc 32.5 g/dL (31.6-35.5); Mean Corpuscular Hemoglobin 27.3 pg (28.0-33.3); Mean Corpuscular Volume 84.1 fL (83.0-100.0); Mean Platelet Volume 11.7 fL (9.4-12.4); Monocytes # 0.8 K/mcL (0.0-1.3); Monocytes % 6.4 %; Neutrophils # 9.7 K/mcL (1.6-8.9); Platelet Count 207 K/mcL (140-400); Red Cell Distribution Width 13.2 % (11.5-14.5); Segmented Neutrophils % 81.5 %
[2016-09-30] MEDS: Insulin LISPRO 300 UNITS/3 ML VIAL SQ SCH ×4 (08:27→21:40)
[2016-09-30] MEDS: Prenatal Vit/FA 1 EACH TABLET PO SCH (08:27)
--- NOTE | 2016-09-30 08:51 | OB/GYN Progress Note ---
Date of Encounter: 09/30/16 Time of Encounter: 08:48 - Assessment and Plan (1) Status post section Current Visit: Yes Status: Acute Continue routine postop/ orders possible discharge home tomorrow. (2) Modified White class B pregestational diabetes mellitus Current Visit: No Status: Chronic Insulin and BS reviewed with Dr. Thakkar. Subjective - Subjective Principal diagnosis: Postop/ day 1 Interval history: Patient sitting up in bed eating breakfast. Denies any pain at this time. Reports light lochia without blood clots. Dr. Thakkar reviewed insulin orders and BS. Patient reports: appetite normal, voiding normally, pain well controlled, ambulating normally : doing well Objective - Vital Signs Latest vital signs: Vital Signs Temp Pulse Resp BP Pulse Ox 09/30/16 08:20 97.8 F 96 16 106/72 09/30/16 08:02 15 09/30/16 03:49 97.9 F 90 15 96/63 99 09/30/16 03:38 15 09/30/16 00:53 97.8 F 94 15 92/64 98 09/30/16 00:50 15 09/29/16 21:44 98.5 F 94 16 110/76 98 09/29/16 16:55 98.3 F 96 16 134/85 98 09/29/16 15:55 97.5 F L 93 16 115/74 99 09/29/16 14:55 98.3 F 94 16 123/80 98 09/29/16 14:25 97.5 F L 99 16 115/85 99 09/29/16 13:55 97.9 F 90 18 120/85 99 Intake and Output 09/29/16 09/30/16 09/30/16 23:59 07:59 15:59 Intake Total 1640 / 1640 Output Total 750 / 750 2049 400 / 400 Balance 890 / 890 -2050 / -2049 -400 / -400 Intake: IV Fluids 1000 / 1000 Pitocin 20 unit In 1,000 1000 / 1000 ml @ 125 mls/hr IV .Q8H JOSSELINE Rx#:[id number] Oral 640 / 640 Output: Urine 400 / 400 Emesis 500 / 500 Catheter 250 / 250 2049 Other: Weight 110.847 kg Blood Glucose* 117 115 Patient Weight 09/30/16 23:59 Weight 110.847 kg - Exam Lungs: bilateral: normal Chest: Normal S1, Normal S2 Extremities: Present: normal Abdomen: Present: normal appearance, soft Incision: Present: normal, dressed (HECTOR dressing) Uterus: Present: normal, firm Fundal Height: 2 (U/2) - Labs Labs: Laboratory Results - last 24 hr 09/29/16 09/29/16 09/29/16 08:34 09:39 15:08 WBC 9.8 RBC 4.70 Hgb 12.7 Hct 39.3 MCV 83.6 MCH 27.0 L MCHC 32.3 RDW 13.2 Plt Count 260 MPV 11.2 Immature Gran % 0.4 Seg Neutrophils % 74.6 Lymphocytes % 18.4 Monocytes % 4.9 Eosinophils % 1.4 Basophils % 0.3 Neutrophils # 7.3 Lymphocytes # 1.8 Monocytes # 0.5 Eosinophils # 0.1 Basophils # 0.0 POC Glucose 121 H 78 09/29/16 09/29/16 09/30/16 17:01 21:25 07:05 WBC 11.9 H RBC 4.10 Hgb 11.2 L D Hct 34.5 L MCV 84.1 MCH 27.3 L MCHC 32.5 RDW 13.2 Plt Count 207 MPV 11.7 Immature Gran % 0.3 Seg Neutrophils % 81.5 Lymphocytes % 10.1 Monocytes % 6.4 Eosinophils % 1.5 Basophils % 0.2 Neutrophils # 9.7 H Lymphocytes # 1.2 Monocytes # 0.8 Eosinophils # 0.2 Basophils # 0.0 POC Glucose 85 113 H 09/30/16 07:35 WBC RBC Hgb Hct MCV MCH MCHC RDW Plt Count MPV Immature Gran % Seg Neutrophils % Lymphocytes % Monocytes % Eosinophils % Basophils % Neutrophils # Lymphocytes # Monocytes # Eosinophils # Basophils # POC Glucose 115 H
[2016-09-30] MEDS ORDERED: Insulin NPH 100 UNIT/ML (x5UNIT) SQ SCH (09:00)
[2016-10-01] MEDS: *HR* OxyCODONE/APAP 5/325 TABLET PO PRN ×5 (05:54→22:08)
--- NOTE | 2016-10-01 09:15 | OB/GYN Progress Note ---
Date of Encounter: 10/01/16 Time of Encounter: 09:12 - Assessment and Plan (1) Status post section Current Visit: Yes Status: Acute I reviewed her sugars and they are 110's -150's, will cont current insulin regimen, patient wants to stay 1 more day, cont current inpt care Subjective - Subjective Interval history: saw and examined patient, she was sitting in chair, pain is under control, lochia is light, is in nursery under bili light, tolerating PO/ambulation Objective - Vital Signs Latest vital signs: Vital Signs Temp Pulse Resp BP Pulse Ox 10/01/16 07:55 98.2 F 94 16 131/85 97 10/01/16 05:58 98.5 F 92 20 143/81 96 09/30/16 19:55 97.9 F 100 16 128/85 99 09/30/16 16:03 98.2 F 105 16 135/97 99 Intake and Output 09/30/16 10/01/16 10/01/16 23:59 07:59 15:59 Intake Total 420 / 420 900 / 900 Output Total 400 / 400 1500 / 1500 Balance -600 / -600 Intake: Oral 420 / 420 900 / 900 Output: Urine 400 / 400 1500 / 1500 Other: Meal Dinner Percent of Meal Consumed 100% Blood Glucose* 123 156 - Exam Lungs: bilateral: normal Chest: Normal S1, Normal S2 Extremities: Present: normal Abdomen: Present: normal appearance Incision: Present: normal Uterus: Present: normal - Labs Labs: Laboratory Results - last 24 hr 09/30/16 09/30/16 10/01/16 16:51 21:37 08:01 POC Glucose 152 H 123 H 156 H
[2016-10-01] MEDS: Insulin LISPRO 300 UNITS/3 ML VIAL SQ SCH ×4 (09:21→21:27)
[2016-10-01] MEDS: Prenatal Vit/FA 1 EACH TABLET PO SCH (09:21)
[2016-10-01] MEDS: cephALEXin 500 MG CAPSULE PO SCH (14:40)
[2016-10-01] MEDS: metroNIDAZOLE 500 MG TABLET PO SCH (14:40)
[2016-10-02] MEDS: Ibuprofen 600 MG TABLET PO PRN (03:22)
[2016-10-02] MEDS: *HR* OxyCODONE/APAP 5/325 TABLET PO PRN ×2 (03:22→07:54)
[2016-10-02] MEDS: Prenatal Vit/FA 1 EACH TABLET PO SCH (07:53)
--- NOTE | 2016-10-02 09:58 | Discharge Summary ---
Date of Encounter: 10/02/16 Time of Encounter: 09:57 - Discharge Diagnosis (1) Type 2 diabetes mellitus Priority: Secondary Status: Acute Comments: Will d/c home on Metformin as this is what she was on prior to . Pt to call if BS elevated. Qualifiers: Diabetes mellitus complication status: without complication Diabetes mellitus ferry terminal supervisor insulin use: without ferry terminal supervisor use Qualified Code(s): E11.9 - Type 2 diabetes mellitus without complications (2) Status post section Priority: Primary Status: Acute Comments: Doing well without c/o. - Discharge Medications Prescriptions: OxyCODONE/APAP 5/325 [Percocet 5/325 MG] 1 each PO Q4HR PRN #40 tablet PRN Reason: post op pain Ibuprofen [Motrin] 600 mg PO Q6HR PRN #40 tablet PRN Reason: Cramping Breast Pump [BREAST PUMP] 1 each .ROUTE AD #1 each Metformin [Glucophage] 1,000 mg PO BIDWM #60 tablet Home Medications: Insulin LISPRO [HumaLOG] 36 unit SQ 1200 09/09/16 [History] Insulin LISPRO [HumaLOG] 46 unit SQ QAM 09/09/16 [History] Insulin LISPRO [Humalog] 42 unit SQ 1700 09/09/16 [History] Insulin NPH [HumuLIN NPH] 46 unit SQ QAM 09/09/16 [History] Insulin NPH, HUMAN [HumuLIN N] 84 unit SQ HS 09/09/16 [History] Pnv95/Ferrous Fumarate/FA [ Caplet] 1 each PO DAILY 09/09/16 [History] Labetalol [Trandate] 100 mg PO TID #90 tablet 09/11/16 [Rx] Breast Pump [BREAST PUMP] 1 each .ROUTE AD #1 each 10/02/16 [Rx] Ibuprofen [Motrin] 600 mg PO Q6HR PRN #40 tablet 10/02/16 [Rx] Metformin [Glucophage] 1,000 mg PO BIDWM #60 tablet 10/02/16 [Rx] OxyCODONE/APAP 5/325 [Percocet 5/325 MG] 1 each PO Q4HR PRN #40 tablet 10/02/16 [Rx] Allergies/Adverse Reactions: Allergies No Known Allergies Allergy (Unverified 03/30/15 11:52) Data Procedures and tests throughout hospitalization: Laboratory Tests 09/29/16 09/29/16 09/29/16 08:34 09:39 15:08 WBC 9.8 RBC 4.70 Hgb 12.7 Hct 39.3 MCV 83.6 MCH 27.0 L MCHC 32.3 RDW 13.2 Plt Count 260 MPV 11.2 Immature Gran % 0.4 Seg Neutrophils % 74.6 Lymphocytes % 18.4 Monocytes % 4.9 Eosinophils % 1.4 Basophils % 0.3 Neutrophils # 7.3 Lymphocytes # 1.8 Monocytes # 0.5 Eosinophils # 0.1 Basophils # 0.0 POC Glucose 121 H 78 09/29/16 09/29/16 09/30/16 17:01 21:25 07:05 WBC 11.9 H RBC 4.10 Hgb 11.2 L D Hct 34.5 L MCV 84.1 MCH 27.3 L MCHC 32.5 RDW 13.2 Plt Count 207 MPV 11.7 Immature Gran % 0.3 Seg Neutrophils % 81.5 Lymphocytes % 10.1 Monocytes % 6.4 Eosinophils % 1.5 Basophils % 0.2 Neutrophils # 9.7 H Lymphocytes # 1.2 Monocytes # 0.8 Eosinophils # 0.2 Basophils # 0.0 POC Glucose 85 113 H 09/30/16 09/30/16 09/30/16 07:35 16:51 21:37 WBC RBC Hgb Hct MCV MCH MCHC RDW Plt Count MPV Immature Gran % Seg Neutrophils % Lymphocytes % Monocytes % Eosinophils % Basophils % Neutrophils # Lymphocytes # Monocytes # Eosinophils # Basophils # POC Glucose 115 H 152 H 123 H 10/01/16 10/01/16 10/01/16 08:01 11:51 18:13 WBC RBC Hgb Hct MCV MCH MCHC RDW Plt Count MPV Immature Gran % Seg Neutrophils % Lymphocytes % Monocytes % Eosinophils % Basophils % Neutrophils # Lymphocytes # Monocytes # Eosinophils # Basophils # POC Glucose 156 H 96 H 270 H 10/01/16 10/02/16 20:45 07:33 WBC RBC Hgb Hct MCV MCH MCHC RDW Plt Count MPV Immature Gran % Seg Neutrophils % Lymphocytes % Monocytes % Eosinophils % Basophils % Neutrophils # Lymphocytes # Monocytes # Eosinophils # Basophils # POC Glucose 115 H 112 H Labs on day of discharge: Labs from last 24 hours 10/02/16 10/01/16 10/01/16 07:33 20:45 18:13 POC Glucose 112 H 115 H 270 H 10/01/16 11:51 POC Glucose 96 H - Impressions Doing well without c/o. Good pain control. Good appetite without n/v. Date of admission: 09/29/16 08:19 Primary care physician: Charla Arevalo, Consults: 09/29/16 14:05 Consult to Check Embosser [CONS] Routine Comment: - Patient Status Disposition: Home, Self-Care Condition: Good Functional capacity at discharge: independent ambulation Overall status at discharge: patient is progressing back to baseline - Discharge Instructions Follow Up With: Patience Salas DO [Partnered Physician] - - Diet and Activity Activity: increase activity as tolerated Diet: advance to your usual diet, diabetic diet Hospital Course CTC OPERATOR Time Attestation: Total time spent providing and/or coordinating discharge services: Exam - Constitutional Vitals: Temp Pulse Resp BP Pulse Ox 98.9 F 96 12 125/84 98 10/01/16 20:47 10/01/16 20:47 10/01/16 20:47 10/01/16 20:47 10/01/16 20:47 General appearance IM: A&O X 3 - Respiratory Respiratory exam: Present: CTAB - Cardiovascular Cardiovascular exam IM: Present: RRR - GI/Abdominal GI/Abdominal exam IM: normal bowel sounds Incision: other (HECTOR intact), dressed - External exam: ecchymosis Uterus Position: 2 Fingers Below Umbilicus - Extremities Exam Extremities exam IM: Present: full ROM - Neurological Exam Neurological exam: oriented X3 - VTE Documentation of Mechanical Device: Intermittent pneumatic compression device
[2016-10-02 12:05] VITALS: BP 134/87
== END 2016-10-02 10:30 | disposition home or self-care (01) | DRG 540 ==
LOC: 1NENULAB 08:19 → 1NENUOBS 13:59
PROVIDERS: ADMIT Obstetrics & Gynecology; ATTEND Obstetrics & Gynecology